=== PATIENT | female | born 1985 | race Caucasian/White ===

== ENCOUNTER 2018-05-20 11:55 | Outpatient (CLI) | payer MEDICAID ==
[2018-05-20 13:04] VITALS: BP 103/54
[2018-05-20 13:11] LABS: Bacteria,Urine 1+ /HPF (Negative); Bilirubin,Urine NEG (Negative); Blood,Urine NEG (Negative); Color,Urine Yellow (Yellow); Mucus,Urine FEW /HPF; Protein,Urine <15 mg/dL mg/dL (Negative); Urobilinogen,Urine < 2.0 mg/dL (<2.0)
--- NOTE | 2018-05-20 15:47 | Ultrasound Report ---
LIMITED OB ULTRASOUND: labor. Gestation: Thomas Position: Cephalic Amniotic Fluid: SILVINA = 9.0 cm Heart Rate: 142 BPM BIOPHYSICAL PROFILE: 2 - breathing movements 2 - movements 2 - posture and tone 2 - Qualitative amniotic fluid volume 8 - TOTAL SCORE OF POSSIBLE 8 Heart Rate (bpm) 134 Estimated gestational age 36 weeks 2 days.
== END 2018-05-20 15:09 | disposition home or self-care (01) ==
LOC: TRG 11:55
PROVIDERS: ATTEND Obstetrics & Gynecology
DX: O47.03 False labor before 37 completed weeks of gestation, third trimester (principal); Z3A.36 36 weeks gestation of pregnancy
CPT/HCPCS: 76815; 76819; 81001